=== PATIENT | female | born 1985 | race Caucasian/White ===

== ENCOUNTER 2019-08-16 00:06 | Emergency (ER) | payer OTHER ==
[~2019-08-16] VITALS: Ht 165.1 cm; Wt 84.8 kg
[~2019-08-16 00:06] MED LIST: BIRTH CONTROL MED PO; NITR50CA PO; NORE-83 PO
--- NOTE | 2019-08-16 00:31 | NUR ---
ER physician at bedside
--- NOTE | 2019-08-16 00:36 | NUR ---
x-ray at bedside
[2019-08-16 00:40] LABS: BASOPHILS # (AUTO) 0.1 K/uL (0.0-8.0); BASOPHILS % (AUTO) 0.5 % (0.0-2.0); EOSINOPHILS # (AUTO) 0.1 K/uL (0.0-0.7); EOSINOPHILS % (AUTO) 0.6 % (0.0-7.0); HEMOGLOBIN 11.5 g/dL (10.9-14.3); LYMPHOCYTES % (AUTO) 27.2 % (20.5-51.5); MEAN CORPUSCULAR HEMOGLOBIN 24.6 uug (24.7-32.8); MEAN CORPUSCULAR HGB CONC 32 g/dL (32.3-35.6); MEAN CORPUSCULAR VOLUME 77.1 fL (75.5-95.3); MONOCYTES # (AUTO) 0.7 K/uL (2.0-10.0); MONOCYTES % (AUTO) 6.7 % (0.0-11.0); NEUTROPHILS # (AUTO) 7.1 K/uL (1.8-8.9); PLATELET COUNT (AUTO) 379 K/uL (179-408); RED BLOOD CELL COUNT(AUTO) 4.68 MIL/uL (3.63-4.92)
[2019-08-16] MEDS ORDERED: IV NS 1000 ML 1,000 ML IV ONE (00:45)
[2019-08-16] MEDS ORDERED: ASPIRIN 325 MG TABLET PO ONE (00:45)
[2019-08-16 00:47] LABS: CREATININE 1.1 mg/dL (0.6-1.3); POTASSIUM 3.8 mmol/L (3.5-5.1)
[2019-08-16] MEDS ORDERED: ASPIRIN 325 MG TABLET ONE (00:48)
[2019-08-16] MEDS ORDERED: IBUPROFEN 600 MG TABLET PO ONE (01:30)
[2019-08-16] MEDS ORDERED: IBUPROFEN 600 MG TABLET ONE (01:32)
[2019-08-16 01:37] LABS: *URINE HCG, QUAL NEGATIVE (NEGATIVE)
[2019-08-16 01:38] LABS: BILIRUBIN,DIRECT 0.1 mg/dL (0.0-0.2); BILIRUBIN,TOTAL 0.2 mg/dL (0.2-1.0); TOTAL PROTEIN, SERUM 7.6 g/dL (6.4-8.2)
--- NOTE | 2019-08-16 04:13 | NUR ---
Patient discharged to home in stable conditon. Written and verbal after care instructions given. Patient verbalizes understanding of instructions. self ambulatory with steady gait. patient in stable condition. Exit care package and personal belongings taken home with patient.
[2019-08-16 04:14] VITALS: BP 117/61
== END 2019-08-16 03:57 | disposition home or self-care (01) ==
LOC: ER 00:10
DX: R07.9 Chest pain, unspecified (principal); R42 Dizziness and giddiness; R19.7 Diarrhea, unspecified; R51 Headache; Z88.0 Allergy status to penicillin; Z88.5 Allergy status to narcotic agent; Z79.899 Other long term (current) drug therapy
CPT/HCPCS: 36415; 70030-TC; 71045; 84703; 85025; 93005; A4663; J7030

== ENCOUNTER 2020-07-23 21:57 | Emergency (ER) | payer OTHER ==
[~2020-07-23] VITALS: Ht 165.1 cm; Wt 94.8 kg
--- NOTE | 2020-07-23 22:11 | NUR ---
Dr. Kowalski at bedside for MSE
--- NOTE | 2020-07-23 22:17 | NUR ---
Patient discharged to home in stable condition. Written and verbal after care instructions given. Patient verbalizes understanding of instructions. Stressed follow up or return to ER for worsening s/s. AA/Ox4. able to speak in complete sentences respirations even and unlabored no s/s of cardiovascular distress ambulatory with steady gait all belongings with pt
[2020-07-23 22:23] VITALS: BP 142/75
== END 2020-07-23 22:17 | disposition home or self-care (01) ==
LOC: ER 21:58
DX: I10 Essential (primary) hypertension (principal); Z79.899 Other long term (current) drug therapy; Z79.3 Long term (current) use of hormonal contraceptives; Z88.6 Allergy status to analgesic agent; Z88.0 Allergy status to penicillin; Z87.19 Personal history of other diseases of the digestive system
CPT/HCPCS: A4663

== ENCOUNTER 2020-08-12 20:23 | Emergency (ER) | payer OTHER ==
[~2020-08-12] VITALS: Ht 152.4 cm; Wt 90.7 kg
--- NOTE | 2020-08-12 20:35 | NUR ---
Dr. Kovacs at bedside for MSE.
--- NOTE | 2020-08-12 20:38 | NUR ---
Patient provided urine sample, sent to lab.
[2020-08-12 20:56] LABS: BASOPHILS % (AUTO) 0.4 % (0.0-2.0); EOSINOPHILS # (AUTO) 0.2 K/uL (0.0-0.7); EOSINOPHILS % (AUTO) 2.2 % (0.0-7.0); HEMATOCRIT 37.2 % (31.2-41.9); HEMOGLOBIN 12.4 g/dL (10.9-14.3); LYMPHOCYTES # (AUTO) 3.3 K/uL (20.0-40.0); LYMPHOCYTES % (AUTO) 33.3 % (20.5-51.5); MEAN CORPUSCULAR HEMOGLOBIN 29.3 uug (24.7-32.8); MEAN CORPUSCULAR HGB CONC 33 g/dL (32.3-35.6); MEAN CORPUSCULAR VOLUME 87.8 fL (75.5-95.3); MONOCYTES # (AUTO) 0.7 K/uL (2.0-10.0); MONOCYTES % (AUTO) 7.6 % (0.0-11.0); NEUTROPHILS # (AUTO) 5.5 K/uL (1.8-8.9); NEUTROPHILS % (AUTO) 56.5 % (38.5-71.5); PLATELET COUNT (AUTO) 332 K/uL (179-408); RED BLOOD CELL COUNT(AUTO) 4.24 MIL/uL (3.63-4.92); WHITE BLOOD COUNT (AUTO) 9.8 K/uL (3.8-11.8)
[2020-08-12 20:58] LABS: *BILIRUBIN,URIN NEGATIVE (NEGATIVE); *BLOOD, URINE NEGATIVE (NEGATIVE); *CLARITY,URINE SLIGHTLY CLOUDY (CLEAR); *COLOR,URINE YELLOW (YELLOW); *KETONES,URINE TRACE (NEGATIVE); *UROBILINOGEN,URINE 0.2 E.U./dl (NORMAL); LEUKOCYTE ESTERASE ,URINE NEGATIVE (NEGATIVE); NITRITE, URINE NEGATIVE (NEGATIVE); PH,URINE 5.5 (5.0-8.0); UGLUCOSE NEGATIVE (NEGATIVE)
[2020-08-12 21:05] LABS: CREATININE 1.4 mg/dL (0.6-1.3); POTASSIUM 3.9 mmol/L (3.5-5.1)
[2020-08-12 21:11] LABS: BILIRUBIN,TOTAL 0.2 mg/dL (0.2-1.0); TOTAL PROTEIN, SERUM 7.3 g/dL (6.4-8.2)
--- NOTE | 2020-08-12 21:31 | NUR ---
Ultrasound at bedside.
--- NOTE | 2020-08-12 22:11 | NUR ---
Patient discharged to home in stable condition. Written and verbal after care instructions given. Patient verbalizes understanding of instructions. Stressed follow up or return to ER for worsening s/s. Patient out of ER with steady gait, no acute signs of distress, VSS, all belongings taken.
[2020-08-12 22:12] VITALS: BP 138/80
== END 2020-08-12 22:12 | disposition home or self-care (01) ==
LOC: ER 20:25
DX: G89.29 Other chronic pain (principal); R10.30 Lower abdominal pain, unspecified; R30.0 Dysuria; Z88.6 Allergy status to analgesic agent; Z88.0 Allergy status to penicillin; Z90.49 Acquired absence of other specified parts of digestive tract
CPT/HCPCS: 36415; 76856; 83690; 85025; A4663

== ENCOUNTER 2021-03-04 15:21 | Emergency (ER) | payer OTHER ==
[~2021-03-04] VITALS: Ht 165.1 cm; Wt 90.7 kg
[2021-03-04] MEDS ORDERED: AZIT250T PO (15:57)
[2021-03-04] MEDS ORDERED: NEOM10DR11 OT (15:58)
--- NOTE | 2021-03-04 16:08 | NUR ---
Patient discharged to home in stable condition. Written and verbal after care instructions given. Patient verbalizes understanding of instructions. Stressed follow up or return to ER for worsening s/s.
== END 2021-03-04 16:09 | disposition home or self-care (01) ==
LOC: ER 15:21
DX: H66.41 Suppurative otitis media, unspecified, right ear (principal); H60.91 Unspecified otitis externa, right ear; Z88.6 Allergy status to analgesic agent; Z88.0 Allergy status to penicillin; Z90.49 Acquired absence of other specified parts of digestive tract; M79.641 Pain in right hand
CPT/HCPCS: 73130; A4663

== ENCOUNTER 2021-03-31 22:55 | Emergency (ER) | payer OTHER ==
[~2021-03-31] VITALS: Ht 165.1 cm; Wt 90.7 kg
[~2021-03-31 22:55] MED LIST changes: +AZIT250T PO; +NEOM10DR11 OT
[2021-04-01 00:48] LABS: *BILIRUBIN,URIN NEGATIVE (NEGATIVE); *BLOOD, URINE 2+ (NEGATIVE); *CLARITY,URINE CLEAR (CLEAR); *KETONES,URINE NEGATIVE (NEGATIVE); *UROBILINOGEN,URINE 0.2 E.U./dl (NORMAL); LEUKOCYTE ESTERASE ,URINE 1+ (NEGATIVE); NITRITE, URINE NEGATIVE (NEGATIVE); UGLUCOSE NEGATIVE (NEGATIVE)
[2021-04-01 00:50] LABS: *COLOR,URINE STRAW (YELLOW)
[2021-04-01 01:07] LABS: BACTERIA,URINE NONE SEEN /HPF (NONE SEEN)
[2021-04-01 01:08] LABS: SQUAMOUS EPITHELIAL CELL,UR FEW /HPF (NONE SEEN)
[2021-04-01 01:20] LABS: *URINE HCG, QUAL NEGATIVE (NEGATIVE)
[2021-04-01] MEDS ORDERED: CEPH500C2 PO (01:56)
--- NOTE | 2021-04-01 02:05 | NUR ---
Pt. reprts pain with urination in pelvic and abdomen that started yesterday. Pain level 5 currently. vss.
[2021-04-01] MEDS: CEFTRIAXONE 1 G VIAL IM ONE (02:10)
[2021-04-01] MEDS ORDERED: CEFTRIAXONE /D5W 50ML IVPB **ER PYXIS IV ONE (02:26)
[2021-04-01] MEDS: CEFTRIAXONE 1 G in IV DEXTROSE 5% 50 ML IV ONE (02:30)
--- NOTE | 2021-04-01 02:46 | NUR ---
Patient discharged to home in stable condition. Written and verbal after care instructions given. Patient verbalizes understanding of instructions. Stressed follow up or return to ER for worsening s/s. pt. stable, no signs of distress, all belongings with patient.
[2021-04-01] MEDS ORDERED: PHEN-705 PO (03:32)
[2021-04-01] MEDS: PHENAZOPYRIDINE HCL 100 MG TABLET PO ONE (03:44)
[2021-04-01 03:46] VITALS: BP 129/61
== END 2021-04-01 03:46 | disposition home or self-care (01) ==
LOC: ER 22:55
DX: N39.0 Urinary tract infection, site not specified (principal); Z90.49 Acquired absence of other specified parts of digestive tract; Z88.5 Allergy status to narcotic agent; Z88.0 Allergy status to penicillin
CPT/HCPCS: 81001; 84703; 87086; 96374; 99284; J0696; A4663

== ENCOUNTER 2021-04-30 23:05 | Emergency (ER) | payer OTHER ==
[~2021-04-30] VITALS: Ht 165.1 cm; Wt 88.5 kg
[~2021-04-30 23:05] MED LIST changes: +CEPH500C2 PO; +PHEN-705 PO
--- NOTE | 2021-04-30 23:25 | NUR ---
Dr. Crawford at bedside to do MSE
[2021-04-30] MEDS ORDERED: diphenhydrAMINE 50 MG/1 ML VIAL IV ONE (23:30)
[2021-04-30] MEDS ORDERED: ACETAMINOPHEN ES 500 MG TABLET PO ONE (23:30)
[2021-04-30] MEDS ORDERED: IV NORMAL SALINE 1000 ML BAG IV ONE (23:30)
--- NOTE | 2021-04-30 23:30 | NUR ---
Pt c/o chest pain starting at 1999 yesterday. Pt states it began in her upper back and moved to her (left side) of chest today. The pain is 8/10 nonradiating accompanied by SOB and headache. Pt. denies cough, fever, congestion.
[2021-04-30] MEDS ORDERED: ACETAMINOPHEN ES 500 MG TABLET ONE (23:43)
[2021-04-30] MEDS ORDERED: diphenhydrAMINE 50 MG/1 ML VIAL ONE (23:43)
[2021-04-30 23:57] LABS: BASOPHILS # (AUTO) 0.1 K/uL (0.0-8.0); BASOPHILS % (AUTO) 0.6 % (0.0-2.0); EOSINOPHILS # (AUTO) 0.1 K/uL (0.0-0.7); HEMATOCRIT 39.5 % (31.2-41.9); HEMOGLOBIN 12.7 g/dL (10.9-14.3); LYMPHOCYTES # (AUTO) 4.5 K/uL (20.0-40.0); LYMPHOCYTES % (AUTO) 37.3 % (20.5-51.5); MEAN CORPUSCULAR HEMOGLOBIN 26.5 uug (24.7-32.8); MEAN CORPUSCULAR HGB CONC 32 g/dL (32.3-35.6); MEAN CORPUSCULAR VOLUME 82.2 fL (75.5-95.3); MONOCYTES # (AUTO) 0.8 K/uL (2.0-10.0); MONOCYTES % (AUTO) 6.3 % (0.0-11.0); NEUTROPHILS # (AUTO) 6.6 K/uL (1.8-8.9); NEUTROPHILS % (AUTO) 54.8 % (38.5-71.5); PLATELET COUNT (AUTO) 299 K/uL (179-408); WHITE BLOOD COUNT (AUTO) 12.1 K/uL (3.8-11.8)
[2021-05-01 00:01] LABS: CREATININE 0.9 mg/dL (0.6-1.3); POTASSIUM 4.2 mmol/L (3.5-5.1)
[2021-05-01 00:05] LABS: ALANINE AMINOTRANSFERASE 44 U/L (14-59); ALKALINE PHOSPHATASE 105 U/L (50-136); ASPARTATE AMINOTRANSFERASE 40 U/L (15-37); BILIRUBIN,DIRECT 0.1 mg/dL (0.0-0.2); BILIRUBIN,TOTAL 0.2 mg/dL (0.2-1.0); MAGNESIUM 2.2 mg/dL (1.8-2.4); TOTAL PROTEIN, SERUM 7.2 g/dL (6.4-8.2)
--- NOTE | 2021-05-01 00:05 | NUR ---
Pt taken to CT
--- NOTE | 2021-05-01 00:19 | NUR ---
Pt. returned from CT. Pt placed back on the monitor. Pt. states she feels better, is not experiencing SOB anymore. Pt. states her chest pain is reduced to 5/10. Vss. Will continue to monitor.
[2021-05-01 01:06] LABS: *URINE HCG, QUAL NEGATIVE (NEGATIVE)
[2021-05-01] MEDS ORDERED: IBUP-1957 PO (01:26)
[2021-05-01] MEDS ORDERED: ASPI81TA31 PO (01:28)
--- NOTE | 2021-05-01 02:34 | NUR ---
Patient discharged to home in stable condition. Written and verbal after care instructions given. Patient verbalizes understanding of instructions. Stressed follow up or return to ER for worsening s/s. All belongings with patient. Steady gait. VSS.
[2021-05-01 04:03] VITALS: BP 116/56
== END 2021-05-01 02:34 | disposition home or self-care (01) ==
LOC: ER 23:06
DX: R07.2 Precordial pain (principal); R51.9 Headache, unspecified; F41.9 Anxiety disorder, unspecified; E66.9 Obesity, unspecified; Z68.32 Body mass index [BMI] 32.0-32.9, adult; D72.829 Elevated white blood cell count, unspecified; Z82.49 Family history of ischemic heart disease and other diseases of the circulatory system; Z88.6 Allergy status to analgesic agent; Z88.0 Allergy status to penicillin; Z90.49 Acquired absence of other specified parts of digestive tract; F32.9 Major depressive disorder, single episode, unspecified; Z79.899 Other long term (current) drug therapy
CPT/HCPCS: 36415; 70450; 71045; 80048; 80076; 83735; 83880; 84484; 84702; 84703; 85025; 93005; 96361; 96374; 99291; J1200; 70030-TC; A4663; A9150; J7030

== ENCOUNTER 2021-05-27 00:43 | Emergency (ER) | payer OTHER ==
[~2021-05-27] VITALS: Ht 165.1 cm; Wt 90.7 kg
[~2021-05-27 00:43] MED LIST changes: +ASPI81TA31 PO; +IBUP-1957 PO
--- NOTE | 2021-05-27 00:55 | NUR ---
Pt came in with c/o abdominal pain for 2 days. Was seen in [place] [facility] on 05/21/21 and was prescribed ATB. No c/o n/v. A/O x4, no SOB or labored breathing.
--- NOTE | 2021-05-27 01:00 | NUR ---
Dr. Toney at bedside, MSE in progress.
--- NOTE | 2021-05-27 01:05 | NUR ---
Lab at bedside.
[2021-05-27 01:23] LABS: MEAN CORPUSCULAR HEMOGLOBIN 26.6 uug (24.7-32.8); MEAN CORPUSCULAR VOLUME 82.4 fL (75.5-95.3); PLATELET COUNT (AUTO) 304 K/uL (179-408)
[2021-05-27 01:27] LABS: CARBON DIOXIDE 24 mmol/L (21-32); CHLORIDE 104 mmol/L (98-107); CREATININE 1.2 mg/dL (0.6-1.3); GLUCOSE 99 mg/dL (74-106); POTASSIUM 3.9 mmol/L (3.5-5.1); UREA NITROGEN, BLOOD 11 mg/dL (7-18)
[2021-05-27 01:31] LABS: *BILIRUBIN,URIN NEGATIVE (NEGATIVE); *BLOOD, URINE NEGATIVE (NEGATIVE); *COLOR,URINE YELLOW (YELLOW); *KETONES,URINE TRACE (NEGATIVE); *UROBILINOGEN,URINE 0.2 E.U./dl (NORMAL); LEUKOCYTE ESTERASE ,URINE 1+ (NEGATIVE); NITRITE, URINE POSITIVE (NEGATIVE); PH,URINE 5.5 (5.0-8.0); UGLUCOSE NEGATIVE (NEGATIVE)
[2021-05-27 01:32] LABS: ALANINE AMINOTRANSFERASE 44 U/L (14-59); ALKALINE PHOSPHATASE 79 U/L (50-136); ASPARTATE AMINOTRANSFERASE 20 U/L (15-37); BILIRUBIN,DIRECT 0.1 mg/dL (0.0-0.2); BILIRUBIN,TOTAL 0.2 mg/dL (0.2-1.0); LIPASE 203 U/L (73-393)
[2021-05-27 01:37] LABS: *CLARITY,URINE HAZY (CLEAR)
[2021-05-27 01:47] LABS: BACTERIA,URINE MODERATE /HPF (NONE SEEN); RBC,URINE 0-3 /HPF (0-3); SQUAMOUS EPITHELIAL CELL,UR MANY /HPF (NONE SEEN)
[2021-05-27] MEDS ORDERED: CEFU250T85 PO (02:27)
--- NOTE | 2021-05-27 02:51 | NUR ---
Patient discharged to home in stable condition. Written and verbal after care instructions given. Patient verbalizes understanding of instructions. Stressed follow up or return to ER for worsening s/s. Denies any pain/discomfort at this time. A/O x4, no SOB or labored breathing. Steady gait. Picked up by mother.
[2021-05-27 02:52] VITALS: BP 133/81
== END 2021-05-27 02:51 | disposition home or self-care (01) ==
LOC: ER 00:43
DX: N30.90 Cystitis, unspecified without hematuria (principal); Z88.5 Allergy status to narcotic agent; Z88.0 Allergy status to penicillin; Z90.49 Acquired absence of other specified parts of digestive tract
CPT/HCPCS: 36415; 83690; 85025; 87086; A4663

== ENCOUNTER 2021-08-27 23:19 | Emergency (ER) | payer OTHER ==
[~2021-08-27] VITALS: Ht 165.1 cm; Wt 88.9 kg
[~2021-08-27 23:19] MED LIST changes: +CEFU250T85 PO
[2021-08-27 23:57] LABS: HEMATOCRIT 38.3 % (31.2-41.9); MEAN CORPUSCULAR HEMOGLOBIN 26.4 uug (24.7-32.8); MEAN CORPUSCULAR VOLUME 80.2 fL (75.5-95.3); PLATELET COUNT (AUTO) 312 K/uL (179-408)
[2021-08-28 00:02] LABS: CARBON DIOXIDE 29 mmol/L (21-32); CHLORIDE 108 mmol/L (98-107); CREATININE 1.1 mg/dL (0.6-1.3); GLUCOSE 107 mg/dL (74-106); POTASSIUM 3.7 mmol/L (3.5-5.1); UREA NITROGEN, BLOOD 12 mg/dL (7-18)
[2021-08-28 00:07] LABS: ALANINE AMINOTRANSFERASE 38 U/L (14-59); ALKALINE PHOSPHATASE 97 U/L (50-136); ASPARTATE AMINOTRANSFERASE 20 U/L (15-37); BILIRUBIN,TOTAL 0.1 mg/dL (0.2-1.0); TOTAL PROTEIN, SERUM 7.5 g/dL (6.4-8.2)
[2021-08-28 00:09] LABS: BILIRUBIN,DIRECT < 0.1 mg/dL (0.0-0.2)
[2021-08-28 00:35] LABS: *CLARITY,URINE CLOUDY (CLEAR); *COLOR,URINE RED (YELLOW)
[2021-08-28 00:36] LABS: UGLUCOSE NEGATIVE (NEGATIVE)
[2021-08-28 00:37] LABS: *BILIRUBIN,URIN NEGATIVE (NEGATIVE)
[2021-08-28 00:38] LABS: *BLOOD, URINE 3+ (NEGATIVE)
[2021-08-28 00:39] LABS: *UROBILINOGEN,URINE 0.2 E.U./dl (NORMAL); LEUKOCYTE ESTERASE ,URINE TRACE (NEGATIVE); NITRITE, URINE NEGATIVE (NEGATIVE)
[2021-08-28 00:40] LABS: *KETONES,URINE NEGATIVE (NEGATIVE)
[2021-08-28 00:44] LABS: *URINE HCG, QUAL NEGATIVE (NEGATIVE)
[2021-08-28 01:00] LABS: RBC,URINE TNTC /HPF (0-3); SQUAMOUS EPITHELIAL CELL,UR FEW /HPF (NONE SEEN)
[2021-08-28] MEDS ORDERED: MECLIZINE HCL 25 MG TABLET PO ONE (02:15)
[2021-08-28] MEDS ORDERED: MECLIZINE HCL 25 MG TABLET ONE (02:20)
--- NOTE | 2021-08-28 05:00 | NUR ---
Patient states "My light headedness is better now."
[2021-08-28] MEDS ORDERED: MECL-159 PO (06:34)
[2021-08-28 06:40] VITALS: BP 135/88
== END 2021-08-28 06:40 | disposition home or self-care (01) ==
LOC: ER 23:20
DX: R42 Dizziness and giddiness (principal); R10.9 Unspecified abdominal pain; Z82.49 Family history of ischemic heart disease and other diseases of the circulatory system; Z88.6 Allergy status to analgesic agent; Z88.1 Allergy status to other antibiotic agents; Z88.0 Allergy status to penicillin; Z90.49 Acquired absence of other specified parts of digestive tract; R94.31 Abnormal electrocardiogram [ECG] [EKG]
CPT/HCPCS: 36415; 70030-TC; 70450; 84703; 85025; 93005; A4663; J8597

== ENCOUNTER 2021-10-30 01:45 | Emergency (ER) | payer OTHER ==
[~2021-10-30] VITALS: Ht 165.1 cm; Wt 88.9 kg
[~2021-10-30 01:45] MED LIST changes: +MECL-159 PO
--- NOTE | 2021-10-30 02:00 | NUR ---
PT AMBULATED TO ER C/O FLANK PAIN, NO SOB OR LABORED BREATHING, AFEBRILE. DENIES CP/PRESSURE.
[2021-10-30] MEDS: IV NORMAL SALINE 1000 ML BAG IV ONE (02:05)
[2021-10-30 04:17] LABS: MEAN CORPUSCULAR VOLUME 77.4 fL (75.5-95.3); PLATELET COUNT (AUTO) 430 K/uL (179-408)
--- NOTE | 2021-10-30 04:50 | NUR ---
Patient discharged to home in stable condition. Written and verbal after care instructions given. Patient verbalizes understanding of instructions. Stressed follow up or return to ER for worsening s/s. Denies pain/discomfort. Steady gait.
[2021-10-30 06:20] VITALS: BP 122/80
[2021-10-30 09:30] LABS: ALANINE AMINOTRANSFERASE 49 U/L (14-59); ALKALINE PHOSPHATASE 129 U/L (50-136); ASPARTATE AMINOTRANSFERASE 35 U/L (15-37); BILIRUBIN,DIRECT < 0.1 mg/dL (0.0-0.2); BILIRUBIN,TOTAL 0.3 mg/dL (0.2-1.0); CARBON DIOXIDE 26 mmol/L (21-32); CHLORIDE 101 mmol/L (98-107); CREATININE 0.9 mg/dL (0.6-1.3); GLUCOSE 103 mg/dL (74-106); POTASSIUM 4.3 mmol/L (3.5-5.1); UREA NITROGEN, BLOOD 16 mg/dL (7-18)
[2021-10-30 09:47] LABS: *CLARITY,URINE CLEAR (CLEAR); *COLOR,URINE YELLOW (YELLOW); *URINE HCG, QUAL NEG (NEGATIVE); PH,URINE 5.5 (5.0-8.0); UGLUCOSE NEGATIVE (NEGATIVE)
[2021-10-30 09:48] LABS: *BILIRUBIN,URIN NEGATIVE (NEGATIVE); *BLOOD, URINE NEGATIVE (NEGATIVE); *KETONES,URINE NEGATIVE (NEGATIVE); *UROBILINOGEN,URINE 0.2 E.U./dl (NORMAL); LEUKOCYTE ESTERASE ,URINE NEGATIVE (NEGATIVE); NITRITE, URINE NEGATIVE (NEGATIVE)
[2021-10-30 09:48] LABS: LIPASE 321 U/L (73-393)
== END 2021-10-30 04:50 | disposition home or self-care (01) ==
LOC: ER 01:47
DX: R10.9 Unspecified abdominal pain (principal); D75.839 Thrombocytosis, unspecified; Z90.49 Acquired absence of other specified parts of digestive tract; R03.0 Elevated blood-pressure reading, without diagnosis of hypertension; Z88.6 Allergy status to analgesic agent; Z88.1 Allergy status to other antibiotic agents; Z88.0 Allergy status to penicillin
CPT/HCPCS: 36415; 70030-TC; 83690; 84703; 85025; A4663; J7030

== ENCOUNTER 2021-11-30 19:32 | Emergency (ER) | payer OTHER ==
--- NOTE | 2021-11-30 22:04 | NUR ---
Pt not in waiting room.
== END 2021-11-30 22:05 | disposition left against medical advice (07) ==
LOC: ER 19:35
DX: Z53.21 Procedure and treatment not carried out due to patient leaving prior to being seen by health care provider (principal)

== ENCOUNTER 2022-01-04 00:28 | Emergency (ER) | payer OTHER ==
[~2022-01-04] VITALS: Ht 152.4 cm; Wt 88.9 kg
[2022-01-04 01:31] LABS: HEMATOCRIT 33.7 % (31.2-41.9); MEAN CORPUSCULAR HEMOGLOBIN 24.6 uug (24.7-32.8); MEAN CORPUSCULAR VOLUME 75.9 fL (75.5-95.3); PLATELET COUNT (AUTO) 367 K/uL (179-408)
[2022-01-04 01:42] LABS: CARBON DIOXIDE 26 mmol/L (21-32); CHLORIDE 102 mmol/L (98-107); GLUCOSE 165 mg/dL (74-106); POTASSIUM 3.7 mmol/L (3.5-5.1); UREA NITROGEN, BLOOD 13 mg/dL (7-18)
[2022-01-04 01:47] LABS: ALANINE AMINOTRANSFERASE 26 U/L (14-59); ALKALINE PHOSPHATASE 78 U/L (50-136); ASPARTATE AMINOTRANSFERASE 21 U/L (15-37); BILIRUBIN,DIRECT < 0.1 mg/dL (0.0-0.2); BILIRUBIN,TOTAL 0.3 mg/dL (0.2-1.0); TOTAL PROTEIN, SERUM 7.1 g/dL (6.4-8.2)
[2022-01-04 01:50] LABS: IRON, SERUM 20 ug/dL (50-175)
[2022-01-04] MEDS ORDERED: FERR325T28 PO (02:09)
[2022-01-04 02:12] LABS: MAGNESIUM 2.4 mg/dL (1.8-2.4)
== END 2022-01-04 02:28 | disposition home or self-care (01) ==
LOC: ER 00:28
DX: D50.9 Iron deficiency anemia, unspecified (principal); E11.65 Type 2 diabetes mellitus with hyperglycemia; Z90.49 Acquired absence of other specified parts of digestive tract; K58.9 Irritable bowel syndrome, unspecified; Z88.6 Allergy status to analgesic agent; Z88.0 Allergy status to penicillin; Z82.49 Family history of ischemic heart disease and other diseases of the circulatory system
CPT/HCPCS: 36415; 83550; 83735; 85025; 93005; A4663

== ENCOUNTER 2022-03-31 01:02 | Emergency (ER) | payer OTHER ==
[~2022-03-31] VITALS: Ht 162.6 cm; Wt 88.0 kg
[~2022-03-31 01:02] MED LIST changes: +FERR325T28 PO
--- NOTE | 2022-03-31 02:48 | NUR ---
DR. JEFFREY AT BEDSIDE, MSE IN PROGRESS.
[2022-03-31 02:58] LABS: *BILIRUBIN,URIN NEGATIVE (NEGATIVE); *BLOOD, URINE 3+ (NEGATIVE); *COLOR,URINE YELLOW (YELLOW); *KETONES,URINE NEGATIVE (NEGATIVE); *UROBILINOGEN,URINE 0.2 E.U./dl (NORMAL); LEUKOCYTE ESTERASE ,URINE NEGATIVE (NEGATIVE); NITRITE, URINE NEGATIVE (NEGATIVE); UGLUCOSE NEGATIVE (NEGATIVE)
[2022-03-31 02:59] LABS: *CLARITY,URINE HAZY (CLEAR)
[2022-03-31 03:00] LABS: *URINE HCG, QUAL NEGATIVE (NEGATIVE)
--- NOTE | 2022-03-31 03:02 | NUR ---
LAB AT BEDSIDE.
[2022-03-31 03:04] LABS: BACTERIA,URINE MODERATE /HPF (NONE SEEN); RBC,URINE 80-100 /HPF (0-3); SQUAMOUS EPITHELIAL CELL,UR MANY /HPF (NONE SEEN)
[2022-03-31 03:10] LABS: HEMATOCRIT 35.8 % (31.2-41.9); MEAN CORPUSCULAR VOLUME 75.6 fL (75.5-95.3); PLATELET COUNT (AUTO) 360 K/uL (179-408)
[2022-03-31 03:15] LABS: POTASSIUM 4.1 mmol/L (3.5-5.1)
[2022-03-31 03:20] LABS: BILIRUBIN,TOTAL 0.1 mg/dL (0.2-1.0); TOTAL PROTEIN, SERUM 7.5 g/dL (6.4-8.2)
[2022-03-31 03:42] VITALS: BP 130/62
--- NOTE | 2022-03-31 03:42 | NUR ---
Patient discharged to home in stable condition. Written and verbal after care instructions given. Patient verbalizes understanding of instructions. Stressed follow up or return to ER for worsening s/s. Steady gait.
== END 2022-03-31 03:43 | disposition home or self-care (01) ==
LOC: ER 01:09
DX: M54.9 Dorsalgia, unspecified (principal); R06.02 Shortness of breath; Z86.16 Personal history of COVID-19; R31.29 Other microscopic hematuria
CPT/HCPCS: 36415; 71045; 84703; 85025; 87086; A4663

== ENCOUNTER 2022-12-13 18:48 | Emergency (ER) | payer OTHER ==
[~2022-12-13] VITALS: Ht 162.6 cm; Wt 88.9 kg
--- NOTE | 2022-12-13 19:18 | NUR ---
Received report from APOLINAR Donovan.
[2022-12-13 19:42] LABS: *URINE HCG, QUAL NEGATIVE (NEGATIVE)
--- NOTE | 2022-12-13 19:46 | NUR ---
Dr. Toney at bedside. MSE in progress.
[2022-12-13 21:46] LABS: *BILIRUBIN,URIN NEGATIVE (NEGATIVE); *BLOOD, URINE NEGATIVE (NEGATIVE); *COLOR,URINE YELLOW (YELLOW); *KETONES,URINE NEGATIVE (NEGATIVE); *UROBILINOGEN,URINE 0.2 E.U./dl (NORMAL); LEUKOCYTE ESTERASE ,URINE TRACE (NEGATIVE); NITRITE, URINE POSITIVE (NEGATIVE); UGLUCOSE NEGATIVE (NEGATIVE)
[2022-12-13 21:47] LABS: *CLARITY,URINE HAZY (CLEAR)
[2022-12-13 21:51] LABS: BACTERIA,URINE MODERATE /HPF (NONE SEEN)
[2022-12-13 21:52] LABS: SQUAMOUS EPITHELIAL CELL,UR FEW /HPF (NONE SEEN)
[2022-12-13] MEDS ORDERED: CIPROFLOXACIN HCL 250 MG TABLET ONE (22:12)
[2022-12-13] MEDS ORDERED: CIPROFLOXACIN HCL 250 MG TABLET PO ONE (22:15)
[2022-12-13] MEDS ORDERED: CEFD300C3 PO (22:17)
[2022-12-13] MEDS ORDERED: PHEN-705 PO (22:17)
--- NOTE | 2022-12-13 22:25 | NUR ---
Patient discharged to home in stable condition. A/O x 4. NAD noted. Ambulatory with a steady gait. All belongings with patient. Written and verbal after care instructions given. Patient verbalizes understanding of instructions. Stressed follow up or return to ER for worsening s/s.
[2022-12-13 22:26] VITALS: BP 130/70
== END 2022-12-13 22:23 | disposition home or self-care (01) ==
LOC: ER 19:06
DX: J02.9 Acute pharyngitis, unspecified (principal); N39.0 Urinary tract infection, site not specified; R05.9 Cough, unspecified; R51.9 Headache, unspecified; Z20.822 Contact with and (suspected) exposure to COVID-19; Z82.49 Family history of ischemic heart disease and other diseases of the circulatory system; Z90.49 Acquired absence of other specified parts of digestive tract; Z88.0 Allergy status to penicillin; Z88.2 Allergy status to sulfonamides; K58.9 Irritable bowel syndrome, unspecified; F41.9 Anxiety disorder, unspecified; Z79.82 Long term (current) use of aspirin; Z79.899 Other long term (current) drug therapy
CPT/HCPCS: 84703; A4663

== ENCOUNTER 2023-02-04 01:54 | Emergency (ER) | payer OTHER ==
[~2023-02-04] VITALS: Ht 152.4 cm; Wt 88.9 kg
[~2023-02-04 01:54] MED LIST changes: +CEFD300C3 PO
[2023-02-04] MEDS ORDERED: ALBUTEROL SULFATE 2.5 MG/3 ML NEBU NEB ONE (03:00)
--- NOTE | 2023-02-04 03:03 | NUR ---
Lab at bedside
[2023-02-04] MEDS ORDERED: ALBUTEROL SULFATE 2.5 MG/3 ML NEBU ONE (03:06)
--- NOTE | 2023-02-04 03:09 | NUR ---
Respiratory therapist at bedside for respiratory treatment.
[2023-02-04] MEDS ORDERED: OXYCODONE/APAP 5-325 MG TABLET PO ONE (03:15)
[2023-02-04 03:17] LABS: HEMATOCRIT 38.7 % (31.2-41.9); MEAN CORPUSCULAR HEMOGLOBIN 26.6 uug (24.7-32.8); MEAN CORPUSCULAR VOLUME 79.9 fL (75.5-95.3); PLATELET COUNT (AUTO) 335 K/uL (179-408)
[2023-02-04 03:20] LABS: *BILIRUBIN,URIN NEGATIVE (NEGATIVE); *BLOOD, URINE NEGATIVE (NEGATIVE); *CLARITY,URINE CLEAR (CLEAR); *COLOR,URINE YELLOW (YELLOW); *KETONES,URINE NEGATIVE (NEGATIVE); *UROBILINOGEN,URINE 0.2 E.U./dl (NORMAL); LEUKOCYTE ESTERASE ,URINE NEGATIVE (NEGATIVE); NITRITE, URINE NEGATIVE (NEGATIVE); UGLUCOSE NEGATIVE (NEGATIVE)
[2023-02-04 03:21] LABS: CREATININE 0.9 mg/dL (0.6-1.3); POTASSIUM 3.5 mmol/L (3.5-5.1)
[2023-02-04 03:23] LABS: *URINE HCG, QUAL NEGATIVE (NEGATIVE)
[2023-02-04 03:26] LABS: BILIRUBIN,DIRECT 0.1 mg/dL (0.0-0.2); BILIRUBIN,TOTAL 0.5 mg/dL (0.2-1.0); TOTAL PROTEIN, SERUM 7.7 g/dL (6.4-8.2)
[2023-02-04] MEDS ORDERED: OXYCODONE/APAP 5-325 MG TABLET ONE (03:28)
[2023-02-04] MEDS ORDERED: HYDR-3972 PO (03:50)
[2023-02-04] MEDS ORDERED: BLOO-1730 MC (03:50)
[2023-02-04] MEDS ORDERED: ALBU6.7H9 INH (03:54)
[2023-02-04] MEDS ORDERED: ONDANSETRON HCL 4 MG TABLET ONE (04:10)
[2023-02-04] MEDS ORDERED: ONDANSETRON HCL 4 MG/5 ML UDC ORAL SOL PO ONE (04:15)
[2023-02-04 06:06] VITALS: BP 115/85
== END 2023-02-04 06:10 | disposition home or self-care (01) ==
LOC: ER 02:00
DX: B34.9 Viral infection, unspecified (principal); R10.84 Generalized abdominal pain; R74.01 Elevation of levels of liver transaminase levels; Z90.49 Acquired absence of other specified parts of digestive tract; K58.9 Irritable bowel syndrome, unspecified; K29.70 Gastritis, unspecified, without bleeding; K44.9 Diaphragmatic hernia without obstruction or gangrene; Z79.899 Other long term (current) drug therapy; Z88.6 Allergy status to analgesic agent; Z88.0 Allergy status to penicillin; Z88.8 Allergy status to other drugs, medicaments and biological substances; Z82.49 Family history of ischemic heart disease and other diseases of the circulatory system
CPT/HCPCS: 36415; 84703; 85025; A4663; Q0162

== ENCOUNTER 2023-06-26 21:33 | Emergency (ER) | payer OTHER ==
[~2023-06-26] VITALS: Ht 152.4 cm; Wt 90.7 kg
[~2023-06-26 21:33] MED LIST changes: +ALBU6.7H9 INH; +BLOO-1730 MC; +HYDR-3972 PO
[2023-06-26 23:37] LABS: BASOPHILS % (AUTO) 0.4 % (0.0-2.0); DIFFERENTIAL COMMENT 1; EOSINOPHILS # (AUTO) 0.2 K/uL (0.0-0.7); EOSINOPHILS % (AUTO) 2.1 % (0.0-7.0); HEMOGLOBIN 11.3 g/dL (10.9-14.3); LYMPHOCYTES # (AUTO) 2.7 K/uL (0.8-4.8); LYMPHOCYTES % (AUTO) 37.9 % (20.5-51.5); MEAN CORPUSCULAR HEMOGLOBIN 24.6 uug (24.7-32.8); MEAN CORPUSCULAR HGB CONC 32 g/dL (32.3-35.6); MEAN CORPUSCULAR VOLUME 76.4 fL (75.5-95.3); MONOCYTES # (AUTO) 0.4 K/uL (0.1-1.30); NEUTROPHILS # (AUTO) 3.9 K/uL (1.8-8.9); NEUTROPHILS % (AUTO) 54.6 % (38.5-71.5); PLATELET COUNT (AUTO) 339 K/uL (179-408); RED BLOOD CELL COUNT(AUTO) 4.58 MIL/uL (3.63-4.92); RED CELL DISTRIBUTION WIDTH 15.9 % (12.3-17.7); WHITE BLOOD COUNT (AUTO) 7.2 K/uL (3.8-11.8)
[2023-06-26 23:53] LABS: ALBUMIN 3.6 g/dL (3.4-5.0); BILIRUBIN,TOTAL 0.2 mg/dL (0.2-1.0); CALCIUM 7.9 mg/dL (8.5-10.1); CREATININE 1.1 mg/dL (0.6-1.3); POTASSIUM 3.8 mmol/L (3.5-5.1); TOTAL PROTEIN, SERUM 7.2 g/dL (6.4-8.2)
[2023-06-27] MEDS ORDERED: METH4TAB3 PO (00:18)
[2023-06-27] MEDS ORDERED: ALBU18HF2 INH (00:18)
[2023-06-27 00:44] VITALS: BP 130/70; O2SAT 99
== END 2023-06-27 00:45 | disposition home or self-care (01) ==
LOC: ER 21:33
DX: U07.1 COVID-19 (principal); M94.0 Chondrocostal junction syndrome [Tietze]; R07.89 Other chest pain; R09.1 Pleurisy; E83.51 Hypocalcemia; R06.00 Dyspnea, unspecified; N18.2 Chronic kidney disease, stage 2 (mild); Z90.49 Acquired absence of other specified parts of digestive tract; Z88.0 Allergy status to penicillin; Z88.5 Allergy status to narcotic agent; Z88.8 Allergy status to other drugs, medicaments and biological substances; Z79.899 Other long term (current) drug therapy; Z79.82 Long term (current) use of aspirin
CPT/HCPCS: 36415; 71045; 84484; 85025; 93005; A4663

== ENCOUNTER 2024-09-19 21:18 | Emergency (ER) | payer OTHER ==
[~2024-09-19] VITALS: Ht 152.4 cm; Wt 90.7 kg
[~2024-09-19 21:18] MED LIST changes: +ALBU18HF2 INH; +LIDO30AD10 TP; +METH4TAB3 PO
[2024-09-19 21:37] VITALS: O2SAT 98
[2024-09-19] MEDS ORDERED: KETOROLAC TROMETHAMINE 30 MG INJ ONE (22:10)
[2024-09-19] MEDS ORDERED: PROCHLORPERAZINE EDISYLATE 10 MG/2 ML VIAL ONE (22:11)
[2024-09-19] MEDS: PROCHLORPERAZINE EDISYLATE 10 MG/2 ML VIAL IM ONE (22:20)
[2024-09-19] MEDS: KETOROLAC TROMETHAMINE 30 MG INJ IM ONE (22:20)
[2024-09-19 22:22] LABS: BASOPHILS # (AUTO) 0.1 K/UL (0.0-0.2); BASOPHILS % (AUTO) 1.1 % (0.0-2.0); EOSINOPHILS # (AUTO) 0.1 K/uL (0.0-0.7); EOSINOPHILS % (AUTO) 0.5 % (0.0-7.0); HEMATOCRIT 31.3 % (31.2-41.9); LYMPHOCYTES # (AUTO) 3.1 K/uL (0.8-4.8); MEAN CORPUSCULAR HEMOGLOBIN 22.7 uug (24.7-32.8); MEAN CORPUSCULAR HGB CONC 32 g/dL (32.3-35.6); MONOCYTES # (AUTO) 0.7 K/uL (0.1-1.30); MONOCYTES % (AUTO) 5.6 % (0.0-11.0); NEUTROPHILS # (AUTO) 7.9 K/uL (1.8-8.9); NEUTROPHILS % (AUTO) 66.8 % (38.5-71.5); PLATELET COUNT (AUTO) 466 K/uL (179-408); RED BLOOD CELL COUNT(AUTO) 4.41 MIL/uL (3.63-4.92); RED CELL DISTRIBUTION WIDTH 15.9 % (12.3-17.7); WHITE BLOOD COUNT (AUTO) 11.9 K/uL (3.8-11.8)
[2024-09-19 22:47] LABS: ALBUMIN 3.4 g/dL (3.4-5.0); BILIRUBIN,TOTAL 0.1 mg/dL (0.2-1.0); CALCIUM 9.3 mg/dL (8.5-10.1); CREATININE 0.9 mg/dL (0.6-1.3); POTASSIUM 3.5 mmol/L (3.5-5.1); TOTAL PROTEIN, SERUM 7.7 g/dL (6.4-8.2)
[2024-09-19 22:58] LABS: *BILIRUBIN,URIN NEGATIVE (NEGATIVE); *BLOOD, URINE NEGATIVE (NEGATIVE); *CLARITY,URINE CLEAR (CLEAR); *COLOR,URINE YELLOW (YELLOW); *KETONES,URINE NEGATIVE (NEGATIVE); *PROTEIN,URINE NEGATIVE (NEGATIVE); *UROBILINOGEN,URINE 0.2 E.U./dl (NORMAL); LEUKOCYTE ESTERASE ,URINE NEGATIVE (NEGATIVE); NITRITE, URINE NEGATIVE (NEGATIVE); PH,URINE 6.5 (5.0-8.0); UGLUCOSE NEGATIVE (NEGATIVE)
[2024-09-19 23:13] LABS: *URINE HCG, QUAL NEGATIVE (NEGATIVE)
[2024-09-19 23:23] LABS: THYROID STIMULATING HORMONE 2.318 mIU/mL (0.358-3.740)
== END 2024-09-20 00:15 | disposition home or self-care (01) ==
LOC: ER 21:18
DX: R51.9 Headache, unspecified (principal); M79.10 Myalgia, unspecified site; R03.0 Elevated blood-pressure reading, without diagnosis of hypertension; R42 Dizziness and giddiness; R10.9 Unspecified abdominal pain; R07.89 Other chest pain; R10.2 Pelvic and perineal pain; R06.00 Dyspnea, unspecified; E66.01 Morbid (severe) obesity due to excess calories; Z79.3 Long term (current) use of hormonal contraceptives; Z79.82 Long term (current) use of aspirin; Z90.49 Acquired absence of other specified parts of digestive tract; Z68.39 Body mass index [BMI] 39.0-39.9, adult; Z88.0 Allergy status to penicillin; Z88.1 Allergy status to other antibiotic agents; Z88.5 Allergy status to narcotic agent; Z88.7 Allergy status to serum and vaccine
CPT/HCPCS: 99284; 71045; 80053; 81003; 82550; 84703; 83880; 83690; 84443; 85025; 84484; 36415; 96372 ×2; J1885; J0780; A4606; A4663

== ENCOUNTER 2025-03-13 23:03 | Emergency (ER) | payer OTHER ==
[~2025-03-13] VITALS: Ht 154.9 cm; Wt 91.2 kg
[2025-03-13 23:41] LABS: *BILIRUBIN,URIN NEGATIVE (NEGATIVE); *BLOOD, URINE NEGATIVE (NEGATIVE); *CLARITY,URINE CLEAR (CLEAR); *COLOR,URINE YELLOW (YELLOW); *KETONES,URINE NEGATIVE (NEGATIVE); *PROTEIN,URINE NEGATIVE (NEGATIVE); *UROBILINOGEN,URINE 0.2 E.U./dl (NORMAL); LEUKOCYTE ESTERASE ,URINE NEGATIVE (NEGATIVE); NITRITE, URINE NEGATIVE (NEGATIVE); UGLUCOSE NEGATIVE (NEGATIVE)
[2025-03-13 23:46] LABS: *URINE HCG, QUAL NEGATIVE (NEGATIVE)
[2025-03-14 00:31] LABS: BASOPHILS # (AUTO) 0.1 K/UL (0.0-0.2); BASOPHILS % (AUTO) 0.6 % (0.0-2.0); EOSINOPHILS # (AUTO) 0.1 K/uL (0.0-0.7); HEMATOCRIT 42.4 % (31.2-41.9); HEMOGLOBIN 13.9 g/dL (10.9-14.3); LYMPHOCYTES # (AUTO) 3.6 K/uL (0.8-4.8); LYMPHOCYTES % (AUTO) 29.8 % (20.5-51.5); MEAN CORPUSCULAR HEMOGLOBIN 27.9 uug (24.7-32.8); MEAN CORPUSCULAR HGB CONC 33 g/dL (32.3-35.6); MEAN CORPUSCULAR VOLUME 84.9 fL (75.5-95.3); MONOCYTES # (AUTO) 0.7 K/uL (0.1-1.30); MONOCYTES % (AUTO) 5.6 % (0.0-11.0); NEUTROPHILS # (AUTO) 7.7 K/uL (1.8-8.9); PLATELET COUNT (AUTO) 295 K/uL (179-408); RED BLOOD CELL COUNT(AUTO) 4.99 MIL/uL (3.63-4.92); RED CELL DISTRIBUTION WIDTH 14.4 % (12.3-17.7); WHITE BLOOD COUNT (AUTO) 12.2 K/uL (3.8-11.8)
[2025-03-14 00:32] LABS: DIFFERENTIAL COMMENT 1
[2025-03-14] MEDS: IV NS 1000 ML 1,000 ML IV PRN (00:47)
[2025-03-14 00:50] LABS: CALCIUM 9.3 mg/dL (8.5-10.1); CREATININE 0.9 mg/dL (0.6-1.3); POTASSIUM 4.3 mmol/L (3.5-5.1)
[2025-03-14 00:56] LABS: ALBUMIN 3.7 g/dL (3.4-5.0); BILIRUBIN,DIRECT 0.1 mg/dL (0.0-0.2); BILIRUBIN,TOTAL 0.2 mg/dL (0.2-1.0); TOTAL PROTEIN, SERUM 7.5 g/dL (6.4-8.2)
[2025-03-14] MEDS ORDERED: METOCLOPRAMIDE HCL 10 MG/2 ML VIAL ONE (01:06)
[2025-03-14] MEDS ORDERED: KETOROLAC TROMETHAMINE 15 MG INJ ONE (01:06)
[2025-03-14] MEDS: METOCLOPRAMIDE HCL 10 MG/2 ML VIAL IV ONE (01:09)
[2025-03-14] MEDS: KETOROLAC TROMETHAMINE 15 MG INJ IVP ONE (01:10)
[2025-03-14] MEDS ORDERED: SWABABLE VALVE TRANSFER SET EA MC ONE (01:12)
[2025-03-14] MEDS ORDERED: IV NORMAL SALINE 250 ML IV ONE (01:12)
[2025-03-14] MEDS ORDERED: IOHEXOL 300MG/ML 100 ML INFUS..BTL ONE (01:12)
[2025-03-14] MEDS ORDERED: LACT10SO58 PO (06:35)
[2025-03-14 06:51] VITALS: BP 116/79; TEMP 97.9; O2SAT 100
== END 2025-03-14 06:51 | disposition home or self-care (01) ==
LOC: ER 23:07
DX: R10.2 Pelvic and perineal pain (principal); K59.00 Constipation, unspecified; R11.0 Nausea; Z79.3 Long term (current) use of hormonal contraceptives; Z79.82 Long term (current) use of aspirin; Z88.0 Allergy status to penicillin; Z88.1 Allergy status to other antibiotic agents; Z88.5 Allergy status to narcotic agent; Z88.7 Allergy status to serum and vaccine; Z90.49 Acquired absence of other specified parts of digestive tract; Z87.09 Personal history of other diseases of the respiratory system
CPT/HCPCS: 99285; 81003; 84703; 74177; 96374; 96361; 96375; 80076; 80048; 85025; 36415; J1885; J2765; Q9967; J7040; A4606; A4663

== ENCOUNTER 2025-05-01 12:00 | Emergency (ER) | payer OTHER ==
[~2025-05-01] VITALS: Ht 154.9 cm; Wt 90.7 kg
[~2025-05-01 12:00] MED LIST changes: +LACT10SO58 PO
[2025-05-01] MEDS ORDERED: LIDOCAINE 5% PATCH TD ONE (12:15)
[2025-05-01] MEDS ORDERED: KETOROLAC TROMETHAMINE 15 MG INJ ONE (12:15)
[2025-05-01] MEDS: KETOROLAC TROMETHAMINE 15 MG INJ IM ONE (12:16)
[2025-05-01] MEDS: LIDOCAINE 5% PATCH TD ONE (12:16)
[2025-05-01] MEDS ORDERED: IBUP-1955 PO (12:22)
[2025-05-01] MEDS ORDERED: LIDO30AD10 TP (12:22)
[2025-05-01] MEDS ORDERED: CYCL5TAB PO (12:22)
[2025-05-01 12:36] VITALS: BP 129/72; O2SAT 98
== END 2025-05-01 12:37 | disposition home or self-care (01) ==
LOC: ER 12:00
DX: S46.911A Strain of unspecified muscle, fascia and tendon at shoulder and upper arm level, right arm, initial encounter (principal); Z79.3 Long term (current) use of hormonal contraceptives; Z79.82 Long term (current) use of aspirin; Z88.0 Allergy status to penicillin; Z88.1 Allergy status to other antibiotic agents; Z88.5 Allergy status to narcotic agent; Z88.7 Allergy status to serum and vaccine; Z90.49 Acquired absence of other specified parts of digestive tract; W18.39XA Other fall on same level, initial encounter; Y93.89 Activity, other specified; Y92.098 Other place in other non-institutional residence as the place of occurrence of the external cause; Y99.8 Other external cause status
CPT/HCPCS: A4606; A4663; J1885

== ENCOUNTER 2025-08-19 22:51 | Emergency (ER) | payer OTHER ==
[~2025-08-19] VITALS: Ht 152.4 cm; Wt 88.5 kg
[~2025-08-19 22:51] MED LIST changes: +CYCL5TAB PO; +IBUP-1955 PO
[2025-08-19 22:52] VITALS: BP 149/82
[2025-08-19] MEDS: ONDANSETRON ODT 4 MG TAB.RAPDIS SL ONE (23:29)
[2025-08-19] MEDS: FAMOTIDINE 20 MG TABLET PO ONE (23:29)
[2025-08-19] MEDS ORDERED: METOCLOPRAMIDE HCL 10 MG/2 ML VIAL IV ONE (23:45)
[2025-08-19] MEDS ORDERED: diphenhydrAMINE 50 MG/1 ML VIAL IV ONE (23:45)
[2025-08-19] MEDS ORDERED: KETOROLAC TROMETHAMINE 30 MG INJ IVP ONE (23:45)
[2025-08-19] MEDS ORDERED: MAGNESIUM SULFATE 2 GM in IV DEXTROSE 5% 100 ML IV ONE (23:45)
[2025-08-19] MEDS ORDERED: KETOROLAC TROMETHAMINE 30 MG INJ ONE (23:50)
[2025-08-19] MEDS ORDERED: diphenhydrAMINE 50 MG/1 ML VIAL ONE (23:50)
[2025-08-19] MEDS ORDERED: METOCLOPRAMIDE HCL 10 MG/2 ML VIAL ONE (23:50)
[2025-08-19] MEDS ORDERED: MAGNESIUM SULFATE/D5W 100 ML ONE (23:50)
[2025-08-20] MEDS ORDERED: ONDA4TAB11 PO (00:50)
[2025-08-20 00:54] VITALS: BP 149/82; O2SAT 97
== END 2025-08-20 00:54 | disposition home or self-care (01) ==
LOC: ER 22:54
DX: N64.4 Mastodynia (principal); T39.315A Adverse effect of propionic acid derivatives, initial encounter; R03.0 Elevated blood-pressure reading, without diagnosis of hypertension; R11.0 Nausea; R42 Dizziness and giddiness; R53.83 Other fatigue; K58.9 Irritable bowel syndrome, unspecified; Z79.3 Long term (current) use of hormonal contraceptives; Z79.82 Long term (current) use of aspirin; Z88.0 Allergy status to penicillin; Z88.1 Allergy status to other antibiotic agents; Z88.5 Allergy status to narcotic agent; Z88.7 Allergy status to serum and vaccine; Y92.89 Other specified places as the place of occurrence of the external cause
CPT/HCPCS: A4606; A4663; J1200; J1885; J2765; J3475; Q0162